=== PATIENT | male | born 1965 | race Caucasian/White ===

== ENCOUNTER 2017-04-26 16:03 | Emergency (ER) | payer MEDICAID, OTHER ==
[~2017-04-26 16:03] MED LIST: Z.0.NO CURRENT MEDS
[2017-04-26 16:05] VITALS: BP 158/99; PULSE 94; RESP 15; TEMP 97.8; O2SAT 99
--- NOTE | 2017-04-26 18:34 | PD ---
HPI Chief Complaint: Eye Problems/Injury Time Seen by Provider: 17:36 Travel History International Travel<30 days: No Contact w/Intl Traveler<30days: No Traveled to known affect area: No History of Present Illness HPI 51-year-old male presents to emergency department complaining of right eye problems since Wednesday. Patient states that his vision is blurry and has "black lines" in his visual ford. Patient denies pain, photophobia, headache, nausea , vomiting, diarrhea. Denies flashes, intermittent visual changes, floaters, or seeing" falling curtain". States he was recently diagnosed with diabetes but does not follow primary care physician regularly. Patient denies foreign body sensation or history of trauma. PFSH Past Medical History Heart Rhythm Problems: No Cardiac Catheterization: No Cardiovascular Problems: No High Cholesterol: No Congestive Heart Failure: No Diabetes: Yes Diminished Hearing: No Past Surgical History Coronary Artery Bypass Graft: No Social History Alcohol Use: Yes Tobacco Use: No Substance Use: No Allergies-Medications (Allergen,Severity, Reaction): Coded Allergies: No Known Allergies (Unverified , 08/14/12) Reported Meds & Prescriptions Reported Meds & Active Scripts Active Review of Systems Except as stated in HPI: all other systems reviewed are Neg Physical Exam Narrative GENERAL: Well-developed well-nourished in no apparent distress SKIN: Focused skin assessment warm/dry. HEAD: Atraumatic. Normocephalic. No tenderness to palpation of the scalp EYES: Pupils equal and round. No scleral icterus. No injection or drainage. Right eye- ultrasound negative for retinal detachment, Sarmad-Pen 9 and 15, nursing stain negative, Danis's sign negative, no increased uptake of fluorescein stain. ENT: No nasal bleeding or discharge. Mucous membranes pink and moist. NECK: Trachea midline. No JVD. No lymphadenopathy CARDIOVASCULAR: Regular rate and rhythm. No murmur appreciated. RESPIRATORY: No accessory muscle use. Clear to auscultation. Breath sounds equal bilaterally. GASTROINTESTINAL: Abdomen soft, non-tender, nondistended. MUSCULOSKELETAL: No obvious deformities. No clubbing. No cyanosis. No edema. NEUROLOGICAL: Awake and alert. No obvious cranial nerve deficits. Motor grossly within normal limits. Normal speech. PSYCHIATRIC: Appropriate mood and affect; insight and judgment normal. Data Data Last Documented VS Vital Signs Date Time Temp Pulse Resp B/P (MAP) Pulse Ox O2 Delivery O2 Flow Rate FiO2 12/11/17 19:19 04/26/17 16:05 97.8 94 15 99 Orders Orders Mandatory Outpatient Referral (04/26/17 18:40) Ed Discharge Order (04/26/17 19:02) [facility] Medical Decision Making Medical Screen Exam Complete: Yes Emergency Medical Condition: Yes Differential Diagnosis Retinal detachment, corneal abrasion, macular degeneration, glaucoma Narrative Course 51-year-old male presents to emergency department complaining of right eye problems since Wednesday. Patient states that his vision is blurry and has "black lines" in his visual ford. Patient denies pain, photophobia, headache, nausea , vomiting, diarrhea. Denies flashes, intermittent visual changes, floaters, or seeing" falling curtain". States he was recently diagnosed with diabetes but does not follow primary care physician regularly. Patient denies foreign body sensation or history of trauma. Vital signs stable POC Ultrasound negative for retinal detachment. Tonopen 9, 14. Sidels sign negative, no evidence of corneal abrasion. No evidence of retinal detachment, glaucoma, or damage to the cornea. Patient was recently diagnosed with diabetes and his visual problems may be related to this. Because of patient's history and physical patient was recommend he follow up with cook supervisor within 48 hours. Patient understood and will comply. Mandatory referral placed as patient does not have health insurance. I discussed this case with Dr. Ferguson who assisted in the evaluation and treatment of this pt. Procedures Procedure Narrative POC ultrasound performed with Dr. Ferguson. No evidence of retinal detachment. No evidence of debris. Lens and retina clearly visualized Diagnosis Primary Impression: Vision changes Referrals: Insurance Solicitor Additional Instructions: Follow-up with an eye doctor within 24-48 hours. You will receive a phone call. If her symptoms persist or worsen return to the emergency department. Disposition: 01 DISCHARGE HOME Condition: Stable Ankita Whaley Apr 26, 2017 18:34
== END 2017-04-26 19:42 | disposition home or self-care (01) ==
LOC: NEPD 16:03
DX: H53.8 Other visual disturbances (principal)
CPT/HCPCS: 99284